=== PATIENT | male | born 1970 | race Caucasian/White ===

== ENCOUNTER 2019-08-09 07:47 | Emergency (ER) | payer OTHER ==
[2019-08-09] MEDS ORDERED: Sodium Chloride 0.9% 10 ML Syringe FLUSH PRN (07:53)
[2019-08-09] MEDS ORDERED: Lactated Ringers 1,000 ML IV ONE (07:54)
[2019-08-09] MEDS ORDERED: Ketorolac 15 MG/ML SDV IVPUSH ONE (07:54)
[2019-08-09] MEDS ORDERED: Morphine 4 MG/ML Syringe IVPUSH ONE (07:54)
--- NOTE | 2019-08-09 08:00 | EDM.PDOC ---
<BelgicaLiban W - Last Filed: 08/09/19 08:17> ED HPI GENERAL MEDICAL PROBLEM - General Stated Complaint: ER Time Seen by Provider: 08/09/19 07:50 Source of Information: Reports: Patient History Limitations: Reports: No Limitations - History of Present Illness INITIAL COMMENTS - FREE TEXT/NARRATIVE: Pt. states that he developed acute onset R sided lateral abdominal/flank pain this morning while he was driving to work. Pt. states that he thinks he has a kidney stone. He has had 2 kidney stones in the past, the last episode being in 2000. He states that he passed his first stone, and had to have the second one in 2000 surgically removed. Pt. states that his urine was dark in color yesterday. Denies any ana rosa hematuria. He states that the discomfort is intermittent in nature. He states that it is sharp. Denies any nausea or vomiting. No chest pain or shortness of breath. No lightheadedness or weakness. Onset: Today Location: Reports: Abdomen Quality: Reports: Sharp Severity: Severe - Related Data Allergies Allergy/AdvReac Type Severity Reaction Status Date / Time Penicillins Allergy Rash Verified 08/09/19 07:53 Home Meds: Home Meds . [No Known Home Meds] 08/09/19 [History] ED ROS GENERAL - Review of Systems Review Of Systems: See Below Constitutional: Reports: No Symptoms. Denies: Fever, Chills, Weakness, Fatigue , Diaphoresis HEENT: Reports: No Symptoms Respiratory: Reports: No Symptoms Cardiovascular: Reports: No Symptoms Endocrine: Reports: No Symptoms GI/Abdominal: Reports: Abdominal Pain : Reports: Flank Pain Musculoskeletal: Reports: No Symptoms Skin: Reports: No Symptoms Neurological: Reports: No Symptoms Psychiatric: Reports: No Symptoms Hematologic/Lymphatic: Reports: No Symptoms Immunologic: Reports: No Symptoms ED EXAM, GENERAL - Physical Exam Exam: See Below Exam Limited By: No Limitations General Appearance: Alert, WD/WN, No Apparent Distress Respiratory/Chest: No Respiratory Distress, Lungs Clear, Normal Breath Sounds, No Accessory Muscle Use, Chest Non-Tender Cardiovascular: Normal Peripheral Pulses, Regular Rate, Rhythm, No Edema, No Gallop, No JVD, No Murmur, No Rub Peripheral Pulses: 4+: Radial (R) GI/Abdominal: Soft, Non-Tender, No Organomegaly, No Distention, No Abnormal Bruit, No Mass, Pelvis Stable (Male) Exam: Deferred Rectal (Males) Exam: Deferred Extremities: Normal Inspection, Normal Range of Motion, Non-Tender Neurological: Alert, Oriented, CN II-XII Intact, Normal Cognition, Normal Gait, Normal Reflexes, No Motor/Sensory Deficits Psychiatric: Normal Affect, Normal Mood Skin Exam: Warm, Dry, Intact, Normal Color, No Rash Course - Vital Signs Last Recorded V/S: Last Vital Signs Temp 35.5 C 08/09/19 07:47 Pulse 62 08/09/19 07:47 Resp 16 08/09/19 07:47 BP 133/83 08/09/19 07:47 Pulse Ox 99 08/09/19 07:47 - Orders/Labs/Meds Orders: Active Orders 24 hr Category Date Time Status Sodium Chloride 0.9% [Saline Flush] Med 08/09/19 07:53 Active 10 ml FLUSH ASDIRECTED PRN Peripheral IV Insertion Adult [OM.PC] Routine Oth 08/09/19 07:53 Ordered Medication Orders Sodium Chloride (Saline Flush) 10 ml FLUSH ASDIRECTED PRN PRN Reason: Keep Vein Open Labs: Laboratory Tests 08/09/19 08/09/19 08/09/19 Range/Units 08:04 08:04 08:04 WBC 6.7 (4.0-10.0) x10^3/uL RBC 4.93 (4.5-6.0) x10^6/uL Hgb 15.2 (14.0-18.0) g/dL Hct 44.9 (40.0-52.0) % MCV 91.1 (78.0-93.0) fL MCH 30.8 (26.0-32.0) pg MCHC 33.9 (32.0-36.0) g/dL RDW Coeff of Bettye 13.1 (10.0-15.0) % Plt Count 209 (130-400) x10^3/uL Neut % (Auto) 58.5 (50.0-80.0) % Lymph % (Auto) 25.8 (25.0-50.0) % [place] % (Auto) 8.9 (2.0-11.0) % Eos % (Auto) 6.5 H (0.0-4.0) % Baso % (Auto) 0.3 (0.2-1.2) % PT 10.1 (10.0-12.8) SEC INR 0.9 L (2.0-3.5) Sodium 142 (69-191) mmol/L Potassium 4.0 (1.5-9.9) mmol/L Chloride 104 (54-184) mmol/L Carbon Dioxide 26 (21-32) mmol/L Anion Gap 16.0 (10-20) mmol/L BUN 12 (7-18) mg/dL Creatinine 1.1 (0.70-1.30) mg/dL Est Cr Clr Drug Dosing 86.52 mL/min Estimated GFR (MDRD) > 60 Glucose 125 H (74-106) mg/dL Calcium 8.8 (8.5-10.1) mg/dL Corrected Calcium 8.80 (8.5-10.1) mg/dL Total Bilirubin 0.5 (0.2-1.0) mg/dL AST 15 (15-37) U/L ALT 25 (16-63) U/L Alkaline Phosphatase 84 (46-116) U/L C-Reactive Protein < 0.2 (<=0.9) mg/dL Total Protein 7.7 (6.4-8.2) g/dL Albumin 4.0 (3.4-5.0) g/dL Globulin 3.7 Albumin/Globulin Ratio 1.08 Urine Color (YELLOW) Urine Appearance (CLEAR) Urine pH (5.0-8.0) Ur Specific [place] Urine Protein (NEGATIVE) mg/dL Urine Glucose (UA) (NEGATIVE) mg/dL Urine Ketones (NEGATIVE) mg/dL Urine Occult Blood (NEGATIVE) Urine Nitrite (NEGATIVE) Urine Bilirubin (NEGATIVE) Urine Urobilinogen (0.2) EU/dL Ur Leukocyte Esterase (NEGATIVE) Urine RBC (NOT SEEN) /HPF Urine WBC (NOT SEEN) /HPF Ur Squamous Epith Cells (NEGATIVE) /HPF Urine Bacteria (NEGATIVE) /HPF Urine Mucus (NEGATIVE) /LPF 08/09/19 Range/Units 10:45 WBC (4.0-10.0) x10^3/uL RBC (4.5-6.0) x10^6/uL Hgb (14.0-18.0) g/dL Hct (40.0-52.0) % MCV (78.0-93.0) fL MCH (26.0-32.0) pg MCHC (32.0-36.0) g/dL RDW Coeff of Bettye (10.0-15.0) % Plt Count (130-400) x10^3/uL Neut % (Auto) (50.0-80.0) % Lymph % (Auto) (25.0-50.0) % [place] % (Auto) (2.0-11.0) % Eos % (Auto) (0.0-4.0) % Baso % (Auto) (0.2-1.2) % PT (10.0-12.8) SEC INR (2.0-3.5) Sodium (69-191) mmol/L Potassium (1.5-9.9) mmol/L Chloride (54-184) mmol/L Carbon Dioxide (21-32) mmol/L Anion Gap (10-20) mmol/L BUN (7-18) mg/dL Creatinine (0.70-1.30) mg/dL Est Cr Clr Drug Dosing mL/min Estimated GFR (MDRD) Glucose (74-106) mg/dL Calcium (8.5-10.1) mg/dL Corrected Calcium (8.5-10.1) mg/dL Total Bilirubin (0.2-1.0) mg/dL AST (15-37) U/L ALT (16-63) U/L Alkaline Phosphatase (46-116) U/L C-Reactive Protein (<=0.9) mg/dL Total Protein (6.4-8.2) g/dL Albumin (3.4-5.0) g/dL Globulin Albumin/Globulin Ratio Urine Color Yellow (YELLOW) Urine Appearance Clear (CLEAR) Urine pH 5.5 (5.0-8.0) Ur Specific [place] 1.025 Urine Protein 30 H (NEGATIVE) mg/dL Urine Glucose (UA) Negative (NEGATIVE) mg/dL Urine Ketones Negative (NEGATIVE) mg/dL Urine Occult Blood Large H (NEGATIVE) Urine Nitrite Negative (NEGATIVE) Urine Bilirubin Small H (NEGATIVE) Urine Urobilinogen 0.2 (0.2) EU/dL Ur Leukocyte Esterase Negative (NEGATIVE) Urine RBC 20-30 H (NOT SEEN) /HPF Urine WBC 5-10 H (NOT SEEN) /HPF Ur Squamous Epith Cells Few H (NEGATIVE) /HPF Urine Bacteria Few H (NEGATIVE) /HPF Urine Mucus Few H (NEGATIVE) /LPF Meds: Medications Generic Name Dose Route Start Last Admin Trade Name Freq PRN Reason Stop Dose Admin Sodium Chloride 10 ml 08/09/19 07:53 Saline Flush FLUSH ASDIRECTED PRN Keep Vein Open Discontinued Medications Generic Name Dose Route Start Last Admin Trade Name Freq PRN Reason Stop Dose Admin Lactated Ringer's 1,000 mls @ 1,000 mls/hr 08/09/19 07:54 08/09/19 08:05 Ringers, Lactated IV 08/09/19 08:53 1,000 mls/hr ONETIME ONE Administration Ketorolac Tromethamine 15 mg 08/09/19 07:54 08/09/19 08:05 Toradol IVPUSH 08/09/19 07:55 15 mg ONETIME ONE Administration Morphine Sulfate 4 mg 08/09/19 07:54 08/09/19 08:08 Morphine IVPUSH 08/09/19 07:55 4 mg ONETIME ONE Administration Departure - Departure Disposition: Home, Self-Care 01 Clinical Impression: Kidney stone on right side - Discharge Information Instructions: Kidney Stones Referrals: PCP,None [Primary Care Provider] - <Zoran Beal - Last Filed: 08/09/19 11:22> ED HPI GENERAL MEDICAL PROBLEM Right Abdomen Pain Score (Numeric/FACES): 4 Departure - Departure Time of Disposition: 11:22 - Discharge Information *PRESCRIPTION DRUG MONITORING PROGRAM REVIEWED*: Not Applicable *COPY OF PRESCRIPTION DRUG MONITORING REPORT IN PATIENT HERNAN: Not Applicable
[2019-08-09 08:33] LABS: CHLORIDE,CL 104 mmol/L (54-184); SODIUM,NA 142 mmol/L (69-191)
--- NOTE | 2019-08-09 09:40 | CT ---
[id number] CT/CT Abdomen Pelvis WO IV EXAM: ABDOMEN AND PELVIS CT WITHOUT CONTRAST INDICATION: Signs and symptoms of kidney stones. COMPARISON: None. DISCUSSION: 3 mm calculus in the mid right ureter resulting in mild right hydroureteronephrosis. There are a few other small nonobstructing calculi within both kidneys. A 12 x 6 mm hyperdense focus in the midpole of the right kidney is nonspecific, but may represent a small hemorrhagic cyst. No left-sided collecting system dilation. Scattered colonic diverticula without evidence of diverticulitis. Small fat-containing left inguinal hernia. 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 Unenhanced images of the liver, spleen, pancreas, adrenal glands, small bowel and appendix are unremarkable. No adenopathy, free air or free fluid. IMPRESSION: 1. A 3 mm calculus in the mid right ureter results in mild right hydroureteronephrosis. There are a few other small nonobstructing calculi within both kidneys. Zoran Benitez MD 08/09/19 0939 Thank you for allowing us to participate in the care of your patient.
== END 2019-08-09 11:30 | disposition home or self-care (01) ==
LOC: VM.ED 07:47
DX: N13.2 Hydronephrosis with renal and ureteral calculous obstruction (principal); Z88.0 Allergy status to penicillin
CPT/HCPCS: 74176; 80053; 81001; 85025; 85610; 86140; 96361; 96374; 96375; 99283; 99284; J1885; J2270; J7120